=== PATIENT | male | born 1980 | race Caucasian/White ===

== ENCOUNTER 2023-05-07 10:46 | Emergency (ER) | payer MEDICAID ==
[~2023-05-07] VITALS: Ht 182.9 cm; Wt 74.0 kg
[2023-05-07 10:52] VITALS: O2SAT 100
[2023-05-07 11:09] LABS: BASOPHILS % 0.8 % (0.0-2.0); EOSINOPHILS % 4.1 % (0.0-5.0); HEMATOCRIT. 46.7 % (42.0-52.0); HEMOGLOBIN. 15.7 g/dL (14.0-18.0); LYMPHOCYTES % 42.5 % (20.0-50.0); MEAN CORPUSCULAR HEMOGLOBIN 30.7 pg (28.0-32.0); MEAN CORPUSCULAR HGB CONC 33.7 g/dL (31.0-37.0); MEAN CORPUSCULAR VOLUME 91.2 fL (80.0-94.0); MONOCYTES % 6.4 % (2.0-8.0); NEUTROPHILS % 46.2 % (40.0-76.0); PLATELET 201 x1000/uL (130-400); RED BLOOD CELL COUNT 5.11 mill/uL (4.7-6.1); RED CELL DISTRIBUTION WIDTH 13.9 % (11.6-14.6); WHITE BLOOD COUNT 5.6 x1000/uL (4.5-11.0)
[2023-05-07 11:27] LABS: ALANINE AMINOTRANSFERASE 23 IU/L (10-49); ASPARTATE AMINOTRANSFERASE 17 IU/L (<34); BILIRUBIN TOTAL 0.8 mg/dL (0.1-1.0); CALCIUM 9.2 mg/dL (8.7-10.4); CARBON DIOXIDE 29 mEq/L (21-32); CHLORIDE 105 mEq/L (98-107); CREATININE 0.9 mg/dL (0.6-1.3); GLUCOSE 88 mg/dL (70-105); POTASSIUM 4.2 mEq/L (3.5-5.1); PROTEIN TOTAL 8.6 g/dL (6.0-8.3); SODIUM 138 mEq/L (136-145); UREA NITROGEN BLOOD 14 mg/dL (9-23)
[2023-05-07 15:13] LABS: CLARITY URINE CLEAR (CLEAR); COLOR URINE YELLOW (YELLOW); GLUCOSE URINE NEGATIVE (NEGATIVE); KETONES URINE NEGATIVE (NEGATIVE); LEUKOCYTE ESTERASE URINE NEGATIVE (NEGATIVE); NITRITE URINE NEGATIVE (NEGATIVE); OCCULT BLOOD URINE NEGATIVE (NEGATIVE); PH URINE 5.5 (4.5-8.0); PROTEIN URINE NEGATIVE (NEGATIVE); SPECIFIC GRAVITY URINE 1.027 (1.005-1.030); UROBILINOGEN URINE 0.2 E.U./dL (0.2-1.0)
[2023-05-07] MEDS ORDERED: NAPR220C61 MT (16:37)
[2023-05-07 17:04] VITALS: BP 116/81; PULSE 63; RESP 18; TEMP 98.7
== END 2023-05-07 17:20 | disposition home or self-care (01) ==
LOC: ER 10:46
DX: N43.3 Hydrocele, unspecified (principal)
CPT/HCPCS: 36415; 74176; 76870; 80053; 81003; 85025; 93976; 99284

== ENCOUNTER 2024-01-08 18:32 | Emergency (ER) | payer MEDICAID, OTHER ==
[~2024-01-08] VITALS: Ht 172.7 cm; Wt 90.0 kg
[~2024-01-08 18:32] MED LIST: NAPR220C61 MT
[2024-01-08 18:43] VITALS: TEMP 98.8; O2SAT 100
[2024-01-08 19:23] LABS: BASOPHILS % 0.4 % (0.0-2.0); EOSINOPHILS % 2.3 % (0.0-5.0); HEMATOCRIT. 44.7 % (42.0-52.0); HEMOGLOBIN. 15.3 g/dL (14.0-18.0); LYMPHOCYTES % 25.3 % (20.0-50.0); MEAN CORPUSCULAR HEMOGLOBIN 31.2 pg (28.0-32.0); MEAN CORPUSCULAR HGB CONC 34.2 g/dL (31.0-37.0); MEAN CORPUSCULAR VOLUME 91.1 fL (80.0-94.0); MEAN PLATELET VOLUME 7.9 fl (7.4-10.4); PLATELET 203 x1000/uL (130-400); RED BLOOD CELL COUNT 4.91 mill/uL (4.7-6.1); RED CELL DISTRIBUTION WIDTH 13.4 % (11.6-14.6); WHITE BLOOD COUNT 8.2 x1000/uL (4.5-11.0)
[2024-01-08 19:28] LABS: CHLORIDE 105 mEq/L (98-107); POTASSIUM 3.9 mEq/L (3.5-5.1); SODIUM 140 mEq/L (136-145)
[2024-01-08 19:30] LABS: CALCIUM 9.8 mg/dL (8.7-10.4); CARBON DIOXIDE 31 mEq/L (21-32)
[2024-01-08 19:35] LABS: GLUCOSE 90 mg/dL (70-105); UREA NITROGEN BLOOD 11 mg/dL (9-23)
[2024-01-08 19:37] LABS: TROPONIN I HIGH SENSITIVITY < 4 ng/L (3.0-53)
[2024-01-08 20:17] LABS: CLARITY URINE CLEAR (CLEAR); COLOR URINE YELLOW (YELLOW); GLUCOSE URINE NEGATIVE (NEGATIVE); KETONES URINE NEGATIVE (NEGATIVE); LEUKOCYTE ESTERASE URINE NEGATIVE (NEGATIVE); NITRITE URINE NEGATIVE (NEGATIVE); OCCULT BLOOD URINE NEGATIVE (NEGATIVE); PH URINE 5.5 (4.5-8.0); PROTEIN URINE NEGATIVE (NEGATIVE); SPECIFIC GRAVITY URINE 1.018 (1.005-1.030); UROBILINOGEN URINE 0.2 E.U./dL (0.2-1.0)
[2024-01-08] MEDS: FLUCONAZOLE 150MG TABLET PO ONE (20:51)
[2024-01-08] MEDS ORDERED: CLOT15CR27 TP (22:36)
[2024-01-08] MEDS: METRONIDAZOLE 500MG TABLET PO ONE (22:57)
[2024-01-08] MEDS: CEFTRIAXONE SODIUM 500MG VIAL IM ONE (22:58)
[2024-01-08] MEDS: AZITHROMYCIN 500 MG TABLET PO ONE (22:58)
[2024-01-08 23:16] VITALS: BP 125/75; PULSE 69; RESP 18; O2SAT 100
== END 2024-01-08 23:16 | disposition home or self-care (01) ==
LOC: ER 18:32
DX: A64 Unspecified sexually transmitted disease (principal); B37.9 Candidiasis, unspecified
CPT/HCPCS: 99284; 80048; 81003; 85025; 84484; 36415; 93005; 96372; J0696